=== PATIENT | male | born 1980 | race Caucasian/White ===

== ENCOUNTER 2019-11-02 01:15 | Emergency (ER) | payer BC ==
[2019-11-02 01:20] VITALS: BP 136/61; PULSE 63; TEMP 97.3; BMI 30.7
--- NOTE | 2019-11-02 02:10 | PDOC ---
Attending Attestation - Resident Resident Name: FranklinHeriberto soliman - ED Attending Attestation I have performed the following: I have examined & evaluated the patient, The case was reviewed & discussed with the resident, I agree w/resident's findings & plan - HPI HPI: 11/02/19 02:22 Abd pain x 2 days. 11/02/19 02:30 Pt states that he ate eggs and sweet nuts today. He was in [facility] adn smoked hookah. She comes with abdominal pain. Pt happens to have a red rash all over his arms and his abd and back. - Physicial Exam PE: 11/02/19 02:32 afebrile red rash all over trunk and arms Pt is anxious Breathing easily No wheezing Pt's heart and lungs are clear abd soft no reboound + guarding, but pt is distractable Pt has no flank pain. - Medical Decision Making 11/02/19 02:33 Pt will have labs and he will be hydrated with NSS and given prednisone, benadryl and pepcid and ofirmev. He has no known allergies. 11/02/19 03:37 Pt's labs are back and he is very dry; Hb/HCT very high; he is getting hydrated and IV abx 11/02/19 03:47 Pt has no fever or chills 11/02/19 04:06 CBC shows elevated Hb/HCT chem shows elevated K+ pt has normal EKG/sinus pacheco 11/02/19 06:14 3L saline given; labs are normal He will be asked to follow with an cylindrical mixer. Heart Score/ECG Review - ECG Intrepretation Rhythm: Regular Rhythm - [place]: Normal - P and [place] Wave(s) Present: No WPW: No - QRS Poor R Wave Progression: No Q Wave Present: No - ST and T Early Repolarization: No Non Specific ST-T Wave changes: No - ECG Impressions Normal ECG: Yes Non-specific ST Elevation: No Ischemic Changes: No Bradycardia: Yes
[2019-11-02] MEDS ORDERED: SODIUM CHLORIDE 0.9% 500 ML INFUS.BAG IV ONE ×3 (02:23→03:29)
[2019-11-02] MEDS ORDERED: morphine CARPU-JECT 2 MG/1 ML DISP.SYRIN IVPUSH ONE (02:23)
[2019-11-02] MEDS ORDERED: ACETAMINOPHEN 1000 MG/100 ML VIAL (NON FORMULARY) IVPB ONE (02:29)
[2019-11-02] MEDS ORDERED: FAMOTIDINE 20 MG/50 ML IVPB 20 MG/50 ML MG IVPB ONE ×2 (02:29→05:26)
[2019-11-02] MEDS ORDERED: methylPREDNISolone NA SUCC 125 MG/2 ML VIAL IVPB ONE (02:30)
--- NOTE | 2019-11-02 02:39 | PDOC ---
History of Present Illness - General Chief Complaint: Pain Stated Complaint: ABD PAIN Time Seen by Provider: 11/02/19 02:08 History Source: Patient Exam Limitations: No Limitations - History of Present Illness Initial Comments: 11/02/19 02:08 HPI: 39yo M with no significant pmh presenting with 2 days of abdominal pain. Pain is described as diffuse, non-radiating, intermittent, without clear aggravating / alleviating factors, non-radiating, never localized, started two days ago acutely worsened tonight around 10 PM. Patient also endorses diarrhea for 2 days, no blood or dark color. Drank some milk earlier today with mashed potatoes, eggs, and salami. Says he considers himself lactose intolerant and usually avoids milk - but symptom onset predates this consumption. Reports a similar episode of pain 3-4 years ago, was given "two pills" and discharged at that time. From [place], primary care provider is down there, no known food or drug allergies, no reported medical problems or medications. Denies chest pain, fevers, chills, shortness of breath, cough, throat swelling, dysuria, body aches , recent illnesses. Reports normal appetite. All: NKDA Meds: Per chart PMH: Denies PSH: Denies SHx: Shahab Past History - Past Medical History Allergies/Adverse Reactions: Allergies Allergy/AdvReac Type Severity Reaction Status Date / Time No Known Allergies Allergy Verified 11/02/19 01:20 Home Medications: Ambulatory Orders predniSONE [Deltasone -] 40 mg PO DAILY #10 tablet 11/02/19 COPD: No - Psycho Social/Smoking Cessation Hx Smoking History: Never smoked Review of Systems - Review of Systems Able to Perform ROS?: Yes Is the patient limited Azeri proficient: Yes Constitutional: No: Chills, Fever, Weakness HEENTM: No: Nose Congestion, Throat Pain, Throat Swelling, Difficulty Swallowing , Mouth Swelling Respiratory: No: Cough, Shortness of Breath, Wheezing, Productive cough Cardiac (ROS): No: Chest Pain, Irregular Heart Rate, Lightheadedness, Palpitations, Syncope, Chest Tightness ABD/GI: No: Constipated, Diarrhea, Nausea, Poor Appetite, Poor Fluid Intake, Vomiting : No: Burning, Dysuria, Frequency Musculoskeletal: No: Muscle Pain, Muscle Weakness Integumentary: No: Bruising, Pallor, Pruritus, Rash Neurological: No: Headache, Numbness, Tingling, Weakness Psychiatric: No: Stressors, Change in Appetite Endocrine: No: Increased Hunger, Increased Thirst Hematologic/Lymphatic: No: Anemia, Blood Clots, Easy Bleeding All Other Systems: Reviewed and Negative *Physical Exam - Vital Signs Last Vital Signs Temp Pulse Resp BP Pulse Ox 97.3 F L 63 18 136/61 99 11/02/19 01:17 11/02/19 01:17 11/02/19 01:17 11/02/19 01:17 11/02/19 01:17 - Physical Exam 11/02/19 02:51 Vitals reviewed, AFVSS GEN: Appears stated age, NAD, uncomfortable. AAOx3. HEENT: NCAT, EOMI, PERRL. Sclera anicteric, non-injected. No facial asymmetry. Moist mucous membranes. Normal voice. Trachea midline. CV: RRR, S1/S2, no murmurs / rubs / gallops appreciated. LUNG: CTAB, normal work of breathing. No wheezes, rales, rhonchi. No cough. Speaking full sentences. GI: Soft, +distended and grossly TTP (distractable), +hyperactive BS, +guarding , no rebound. No masses. EXTREMITIES: 2+ distal pulses. No LE edema. No obvious deformities of all extremities. SKIN: Warm, dry, +diffuse erythematous, blanching rash on torso and UE. Non- jaundiced. PSYCH: Normal mood and affect. Cooperative and appropriate. NEURO: CN grossly intact. Moving all extremities well. Normal strength and sensation grossly. ED Treatment Course - LABORATORY CBC & Chemistry Diagram: 11/02/19 05:39 11/02/19 05:39 Medical Decision Making - Medical Decision Making 11/02/19 02:41 39yo M with no significant pmh presenting with 2 days of abdominal pain. History notable for pain diarrhea, one prior episode resulting in ED visit with resumed ABX at home, recent milk and nut ingestion. Physical exam notable for stable vitals, good airway, diffuse abdominal pain (distractable) and distention , diffuse blanching erythematous rash. DDX: Diverticulitis, anaphylactic / allergic reaction, lactose intolerance / gas pains, less likely appendicitis / cholecystitis given H&P. - CBC, CMP, Lipase - Morphine, Tylenol - Pepcid, Benadryl, Methylpred - 1L IVF NS 11/02/19 03:49 - Mild K elevation 5.4 - Lipase, CBC wnl (HGB elevated) 11/02/19 04:20 - Additional 2L IVF running - Pain improved with medication - Will repeat CBC/CMP after IVF finish 11/02/19 06:14 - Repeat CBC, CMP wnl Dispo: Home Discharge - Discharge Information Problems reviewed: Yes Clinical Impression/Diagnosis: Gas pain Abdominal pain Qualifiers: Abdominal location: generalized Qualified Code(s): R10.84 - Generalized abdominal pain Allergic reaction Qualifiers: Encounter type: initial encounter Qualified Code(s): T78.40XA - Allergy, unspecified, initial encounter Condition: Improved Disposition: HOME - Admission No - Additional Discharge Information Prescriptions: predniSONE [Deltasone -] 40 mg PO DAILY #10 tablet - Follow up/Referral - Patient Discharge Instructions Additional Instructions: Stop smoking, it is harmful to your health. A prescription for prednisone has been sent to your pharmacy, please pick this up and take it as directed for the next 5 days. Please follow up with your primary care doctor in the next week for continued care. Also consider asking about an tanning wheel operator to be evaluated for your possible allergic reaction. Return to the ED for any new or concerning symptoms. - Post Discharge Activity
[2019-11-02] MEDS ORDERED: methylPREDNISolone NA SUCC 125 MG/2 ML VIAL ONE (02:43)
[2019-11-02] MEDS ORDERED: ACETAMINOPHEN INJECTION 100 ML IVPB ONE (02:43)
[2019-11-02 02:46] LABS: BASO % 1.1 % (0-2.0); HEMATOCRIT 54.6 % (35.4-49); HEMOGLOBIN 18.9 GM/dL (11.7-16.9); LYMPH % 34.9 % (8-40); MCH 33.1 pg (25.7-33.7); MCHC 34.5 g/dl (32.0-35.9); MEAN CELL VOLUME 95.8 fl (80-96); MONO % 7.6 % (3.8-10.2); NEUT % 52.4 % (42.8-82.8); PLATELET COUNT 246 K/MM3 (134-434); RBC 5.71 M/mm3 (4.00-5.60); RDW 13.5 % (11.9-15.9); WHITE BLOOD COUNT 9.3 K/mm3 (4.0-10.0)
[2019-11-02 03:28] LABS: ALBUMIN 3.6 g/dl (3.4-5.0); BILIRUBIN,TOTAL 0.3 mg/dL (0.2-1); BLOOD UREA NITROGEN 12.5 mg/dL (7-18); POTASSIUM 5.4 mmol/L (3.5-5.1); TOT PROT 7.1 g/dl (6.4-8.2)
[2019-11-02 04:49] LABS: PLATELET ESTIMATE ADEQUATE
[2019-11-02 05:49] LABS: BASO % 0.5 % (0-2.0); EOS % 0.7 % (0-4.5); HEMATOCRIT 51.8 % (35.4-49); HEMOGLOBIN 17.6 GM/dL (11.7-16.9); LYMPH % 11.4 % (8-40); MCH 32.3 pg (25.7-33.7); MEAN CELL VOLUME 95.3 fl (80-96); MEAN PLT VOLUME 7.6 fl (7.5-11.1); MONO % 1.6 % (3.8-10.2); NEUT % 85.8 % (42.8-82.8); PLATELET COUNT 210 K/MM3 (134-434); RBC 5.43 M/mm3 (4.00-5.60); RDW 13.6 % (11.9-15.9); WHITE BLOOD COUNT 11.7 K/mm3 (4.0-10.0)
[2019-11-02 06:12] LABS: ALBUMIN 3.2 g/dl (3.4-5.0); BILIRUBIN,TOTAL 0.3 mg/dL (0.2-1); BLOOD UREA NITROGEN 11.2 mg/dL (7-18); POTASSIUM 4.4 mmol/L (3.5-5.1); TOT PROT 6.2 g/dl (6.4-8.2)
--- NOTE | 2019-11-02 08:59 | EKG ---
Test Reason : Blood Pressure : / mmHG Vent. Rate : 059 BPM Atrial Rate : 059 BPM P-R Int : 158 ms QRS Dur : 092 ms QT Int : 414 ms P-R-T Axes : 084 079 071 degrees QTc Int : 409 ms SINUS BRADYCARDIA OTHERWISE NORMAL ECG NO PREVIOUS ECGS AVAILABLE Confirmed by Landry Haney ([id number]) on 11/02/2019 8:59:07 AM Referred By: Confirmed By:Landry Haney
== END 2019-11-02 06:51 | disposition home or self-care (01) ==
LOC: JER 01:15
PROC: 3E033GC Introduction of Other Therapeutic Substance into Peripheral Vein, Percutaneous Approach (ICD-10-PCS; principal; 2019-11-02)
PROC: 3E033NZ Introduction of Analgesics, Hypnotics, Sedatives into Peripheral Vein, Percutaneous Approach (ICD-10-PCS; 2019-11-02)
PROC: 3E0333Z Introduction of Anti-inflammatory into Peripheral Vein, Percutaneous Approach (ICD-10-PCS; 2019-11-02)
DX: R14.1 Gas pain (principal); E73.9 Lactose intolerance, unspecified; T78.40XA Allergy, unspecified, initial encounter; X58.XXXA Exposure to other specified factors, initial encounter
CPT/HCPCS: 36415; 80053; 83690; 85025; 93005; 93010; 99284-25; J0131